=== PATIENT | male | born 1995 | race Two or more races ===

== ENCOUNTER 2021-11-18 17:41 | Emergency (ER) | payer SELFPAY ==
[~2021-11-18] VITALS: Ht 170.2 cm; Wt 90.0 kg
[2021-11-18 21:59] LABS: Basophils # (auto) 0.1 10 ^3/uL (0-0.2); Basophils % (auto) 0.5 % (0.0-2.0); Eosinophils # (auto) 0 10 ^3/uL (0-0.8); Eosinophils % (auto) 0.1 % (0.0-7.0); Hematocrit 48.3 % (41.0-53.0); Hemoglobin 15.9 g/dL (13.5-17.5); Lymphocytes % (auto) 9.1 % (10.0-50.0); Mean Corpuscular Hemoglobin 28.6 pg (28.0-32.0); Mean Corpuscular Hgb Conc. 32.9 g/dL (32.0-36.0); Mean Corpuscular Volume 86.8 fL (80.0-100.0); Monocytes # (auto) 0.2 10 ^3/uL (0-1.3); Monocytes % (auto) 2.2 % (0.0-12.0); Neutrophils % (auto) 88.1 % (37.0-80.0); Nucleated Red Blood Cells % 0.1 %; Red Blood Cells 5.57 10^6/uL (4.5-5.90); Red Cell Distribution Width 13.4 % (11.8-14.3); White Blood Cell 11.4 10^3/uL (4.4-10.8)
[2021-11-18 22:17] LABS: Albumin 4.5 g/dL (3.4-5.0); Calcium 9.4 mg/dL (8.5-10.1); Potassium 3.5 mmol/L (3.5-5.1)
[2021-11-18 22:21] LABS: BUN/Creatinine Ratio 18.3; Total Protein 8.6 g/dL (6.4-8.2)
[2021-11-19] MEDS ORDERED: ONDANSETRON ODT 4 MG TAB PO ONE (01:15)
[2021-11-19] MEDS ORDERED: OLME40TA26 PO (08:37)
[2021-11-19 08:45] VITALS: BP 138/80
[2021-11-19 09:11] LABS: Urine Bacteria NONE SEEN /hpf (None Seen); Urine Blood Negative /uL (Negative); Urine Hyaline Cast MANY /lpf (0 - 2); Urine Mucus MODERATE (None Seen); Urine Specific Gravity 1.031 (1.001-1.035); Urine WBC 9 /hpf (0 - 3)
== END 2021-11-19 08:48 | disposition home or self-care (01) ==
LOC: ER 17:45
DX: I10 Essential (primary) hypertension (principal); R07.89 Other chest pain; R11.2 Nausea with vomiting, unspecified; R51.9 Headache, unspecified
CPT/HCPCS: 36415; 70450; 71045; 80053; 81001; 83690; 83735; 84443; 84484; 85025; 93005; 99285; Q0162

== ENCOUNTER 2024-02-16 07:06 | Inpatient (IN) | payer MEDICAID ==
[~2024-02-16] VITALS: Ht 172.7 cm; Wt 88.1 kg
[~2024-02-16 07:06] MED LIST: OLME40TA78 PO
[2024-02-16] MEDS: SODIUM CHLORIDE 0.9% 1,000 ML IV ONE (07:45)
[2024-02-16] MEDS: ONDANSETRON HCL 4 MG/2 ML VIAL IV ONE ×2 (07:45→10:00)
--- NOTE | 2024-02-16 07:52 | ED.PDOC ---
GI ASSESSMENT HPI Comments 28Y M with PMHx HTN and NSTEMI presents to ED via EMS for chief complaint abd pain since this morning. Pt describes abd pain as pressure. Associated symptoms include nausea, vomiting, constipation, diarrhea, diaphoresis, and facial numbness. Pt states he was previously constipated but after receiving medication by EMS, he started to have diarrhea. Pt woke up with diaphoresis and tongue numbness. Pt states he was unable to speak this morning. No known allergies. Chief Complaint: Abdominal Pain Time Seen by MD: 07:32 Primary Care Provider: UNKNOWN Reviewed Notes: Medications, Allergies Allergies: Coded Allergies: NO KNOWN ALLERGIES (Unverified , 02/16/24) Information Source: Patient, Emergency Med Personnel Mode of Arrival: EMS Brought in by: EMS Timing: Hours Duration: Since onset Prehospital treatment: Other Quality: Other Vomitus: Watery Stool: Watery Severity: Moderate Recent: None Recent Hx of: None Pain Location: Diffuse Modifying Factors: Nothing Associated sign and symptoms: Nausea, Vomiting, Diarrhea, Constipation, Abdominal Pain, Other Past Medical History PAST MEDICAL HISTORY: HTN, [place] Surgical History: Denies all surgeries Family History Family History: Unknown Social History Smoker: Non-Smoker Alcohol: Denies ETOH Use Drugs: Denies Drug Use Lives In: Home Constitutional: reports: diaphoresis; denies: chills, fatigue, fever, malaise, sweats, weakness, others EENTM: denies: blurred vision, double vision, ear bleeding, ear discharge, ear drainage, ear pain, ear ringing, eye pain, eye redness, hearing loss, mouth pain, mouth swelling, nasal discharge, nose bleeding, nose congestion, nose pain, photophobia, tearing, throat pain, throat swelling, voice changes, others Respiratory: denies: cough, hemoptysis, orthopnea, SOB at rest, shortness of breath, SOB with excertion, stridor, wheezing, others Cardiovascular: denies: chest pain, dizzy spells, diaphoresis, Dyspnea on exertion, edema, irregular heart beat, left arm pain, lightheadedness, palpitations, PND, syncope, others Gastrointestinal: reports: abdominal pain, constipated, diarrhea, nausea, vomiting; denies: abdomen distended, blood streaked bowels, dysphagia, difficulty swallowing, hematemesis, melena, poor appetite, poor fluid intake, rectal bleeding, rectal pain, others Genitourinary: denies: burning, dysuria, flank pain, frequency, hematuria, incontinence, penile discharge, penile sore, pain, testicle pain, testicle swelling, urgency, others Neurological: reports: numbness, speech problems; denies: dizziness, fainting, headache, left sided numbness, left sided weakness, paresthesia, pre-existing deficit, right sided numbness, right sided weakness, seizure, tingling, tremors, weakness, others Musculoskeletal: denies: back pain, gout, joint pain, joint swelling, muscle pain, muscle stiffness, neck pain, others Integumetry: denies: bruises, change in color, change in hair/nails, dryness, laceration, lesions, lumps, rash, wounds, others Allergic/Immunocompromised: denies: Difficulty Healing, Frequent Infections, H osei, Itching, others Hematologic/Lymphatic: denies: anemia, blood clots, easy bleeding, easy bruising, swollen glands, others Endocrine: denies: excessive hunger, excessive sweating, excessive thirst, excessive urination, flushing, intolerance to cold, intolerance to heat, unexplained weight gain, unexplained weight loss, others Psychiatric: denies: anxiety, bipolar disorder, depression, hopeless, panic disorder, schizophrenia, sleepless, suicidal, others All Other Systems: Reviewed and Negative Physical Exam General Appearance: No Apparent Distress, Normal HEENT: Normal ENT Inspection, Pharynx Normal, TMs Normal Neck: Full Range of Motion, Non-Tender, Normal, Normal Inspection Respiratory: Chest Non-Tender, Lungs Clear, No Accessory Muscle Use, No Respiratory Distress, Normal Breath Sounds Cardiovascular: No Edema, No JVD, No Murmur, No Gallop, Normal Peripheral Pulses, Regular Rate/Rhythm Breast Exam: Deferred Gastrointestinal: Diffuse, Tenderness Genitalia: Deferred Pelvic: Deferred Rectal: Deferred Extremities: No calf tenderness, Normal capillary refill, Normal inspection, Normal range of motion, Non-tender, No pedal edema Musculoskeletal : Apperance: Normal Neurologic: Alert, transportation analyst II-XII nml as Tested, No Motor Deficits, Normal Affect, Normal Mood, No Sensory Deficits Cerebellar Function: Normal Reflexes: Normal Skin: Dry, Normal Color, Warm Lymphatic: No Adenopathy Was a procedure done? Was a procedure done?: No GI differential Dx Differential Diagnosis: Appendicitis, Cholecystitis, Diverticular disease, Gastroenteritis, Inflammatory BD, UTI, Electrolyte Imbalance X-Ray, Labs, Meds, VS Vital Signs Date Time Temp Pulse Resp B/P (MAP) Pulse Ox O2 Delivery O2 Flow Rate FiO2 02/16/24 08:25 98.1 77 18 139/91 (107) 100 98.1 02/16/24 08:25 73 18 100 Room Air* 0 21 02/16/24 07:16 97.7 64 18 146/91 (109) 100 Lab Test 02/16/24 08:53 02/16/24 07:48 Range/Units Troponin I High Sensitivity < 3 L < 3 L </=54 ng/L White Blood Count 10.5 4.4-10.8 10^3/uL Red Blood Count 5.46 4.5-5.90 10^6/uL Hemoglobin 16.7 13.5-17.5 g/dL Hematocrit 48.2 41.0-53.0 % Mean Corpuscular Volume 88.2 80.0-100.0 fL Mean Corpuscular Hemoglobin 30.6 28.0-32.0 pg Mean Corpuscular Hemoglobin Concent 34.7 32.0-36.0 g/dL Red Cell Distribution Width 13.3 11.8-14.3 % Platelet Count 287 140-450 10^3/uL Mean Platelet Volume 7.4 6.9-10.8 fL Neutrophils (%) (Auto) 84.6 H 37.0-80.0 % Lymphocytes (%) (Auto) 8.8 L 10.0-50.0 % Monocytes (%) (Auto) 3.7 0.0-12.0 % Eosinophils (%) (Auto) 2.2 0.0-7.0 % Basophils (%) (Auto) 0.7 0.0-2.0 % Neutrophils # (Auto) 8.9 H 1.6-8.6 10 ^3/uL Lymphocytes # (Auto) 0.9 0.4-5.4 10 ^3/uL Monocytes # (Auto) 0.4 0-1.3 10 ^3/uL Eosinophils # (Auto) 0.2 0-0.8 10 ^3/uL Basophils # (Auto) 0.1 0-0.2 10 ^3/uL Nucleated Red Blood Cells 0.0 % Sodium Level 140 136-145 mmol/L Potassium Level 3.8 3.5-5.1 mmol/L Chloride Level 103 98-107 mmol/L Carbon Dioxide Level 29 20-31 mmol/L Anion Gap 8 5-15 Blood Urea Nitrogen 16 9-23 mg/dL Creatinine 0.94 0.700-1.30 mg/dL Glomerular Filtration Rate Calc 114 >90 mL/min BUN/Creatinine Ratio 17.0 10.0-20.0 Serum Glucose 143 H 74-106 mg/dL Calcium Level 10.0 8.7-10.4 mg/dL Total Bilirubin 0.6 0.2-1.0 mg/dL Aspartate Amino Transferase (AST) 16 13-40 U/L Alanine Aminotransferase (ALT) 26 7-40 U/L Alkaline Phosphatase 100 46-116 U/L Total Protein 7.4 5.7-8.2 g/dL Albumin 4.7 3.2-4.8 g/dL Lipase 43 12-53 U/L Current Medications Medications (Trade) Dose Ordered Sig/Shun Route Start Time Stop Time Status Last Admin Sodium Chloride 1,000 ml @ 1,000 mls/hr Q1H ONCE IV 02/16/24 07:45 02/16/24 08:44 DC 02/16/24 07:45 Ondansetron HCl (Zofran) 4 mg ONCE ONCE IV 02/16/24 07:45 02/16/24 07:46 DC 02/16/24 07:45 [place] [id number] Ph: [phone] DIAGNOSTIC IMAGING Diagnostic Imaging Report : [id number] Signed PATIENT: KELLY LANDEROS ACCT: [id number] UNIT: [id number] : 1995 LOC: ER ROOM / BED: / AGE / SEX: 28 / M ADM STATUS: REG ER SERVICE 0737 ORDERING PHYSICIAN: SADIE PERKINS MD PROCEDURE(s): CXRP - CHEST PORTABLE REASON: abdomninal pain, near syncope ORDER NUMBER(s): [id number], ACCESSION NUMBER(s): [id number] EXAM: XR Chest, 1 View CLINICAL INDICATION: abdomninal pain, near syncope TECHNIQUE: Frontal view of the chest. COMPARISON: None FINDINGS: LUNGS AND PLEURAL SPACES: Unremarkable. No consolidation. No pneumothorax. HEART: Unremarkable. No cardiomegaly. MEDIASTINUM: Unremarkable. Normal mediastinal contour. BONES/JOINTS: Unremarkable. No acute fracture. OTHER FINDINGS: . . . IMPRESSION: No acute cardiopulmonary process. HS:Y ATED BY: JAMAR CHAVIS MD DICTATED DATE/TIME: 02/16/24899 SIGNED BY: JAMAR CHAVIS MD SIGNED DATE/TIME: 02/16/24899 CC: [place] [address] Ph: [phone] DIAGNOSTIC IMAGING Diagnostic Imaging Report : [id number] Signed PATIENT: KELLY LANDEROS ACCT: [id number] UNIT: [id number] : 1995 LOC: ER ROOM / BED: / AGE / SEX: 28 / M ADM STATUS: REG ER SERVICE 6 ORDERING PHYSICIAN: SADIE PERKINS MD PROCEDURE(s): ABPLIV - CT AB PEL WITH IV CON ONLY REASON: ABDOMINAL PAIN, NEAR SYNCOPE ORDER NUMBER(s): [id number], ACCESSION NUMBER(s): [id number] EXAM: CT Abdomen and Pelvis With Intravenous Contrast CLINICAL INDICATION: ABDOMINAL PAIN, NEAR SYNCOPE TECHNIQUE: Axial computed tomography images of the abdomen and pelvis with intravenous contrast. This CT exam was performed using one or more of the following dose reduction techniques: automated exposure control, adjustment of the mA and/or kV according to patient size, and/or use of iterative reconstruction technique. RADIATION DOSE: CTDlvol= 11.6 mGy, DLP= 598.35 mGy-cm COMPARISON: None FINDINGS: LUNG BASES: Unremarkable. No mass. No consolidation. ABDOMEN: LIVER: Fatty infiltration of the liver. GALLBLADDER AND BILE DUCTS: Unremarkable. No calcified stones. No ductal dilation. PANCREAS: Unremarkable. No mass. No ductal dilation. SPLEEN: Unremarkable. No splenomegaly. ADRENALS: Unremarkable. No mass. KIDNEYS AND URETERS: Unremarkable. No stones within either kidney. No hydronephrosis. STOMACH AND BOWEL: Unremarkable. No obstruction. No mucosal thickening. PELVIS: APPENDIX: Appendix measuring up to 6 mm containing a 2 mm calculus. No surrounding fat stranding is noted to suggest acute inflammation. BLADDER: Unremarkable. No mass. REPRODUCTIVE: Unremarkable as visualized. ABDOMEN and PELVIS: INTRAPERITONEAL SPACE: Unremarkable. No free air. No significant fluid collection. BONES/JOINTS: No acute fracture. No dislocation. SOFT TISSUES: Umbilical hernia containing fat. VASCULATURE: Unremarkable. No abdominal aortic aneurysm. LYMPH NODES: Unremarkable. No enlarged lymph nodes. OTHER FINDINGS: . . IMPRESSION: 1. Umbilical hernia containing fat. 2. Appendix measuring up to 6 mm containing a 2 mm calculus. No surrounding fat stranding is noted to suggest acute inflammation. 3. No obstructive uropathy. HS:Y ATED BY: JAMAR CHAVIS MD DICTATED DATE/TIME: 02/16/24922 SIGNED BY: JAMAR CHAVIS MD SIGNED DATE/TIME: 02/16/24922 CC: Time of 1ST Reevaluation: 08:02 Reevaluation 1ST: Unchanged Patient Education/Counseling: Diagnosis, Treatment Family Education/Counseling: No Family Present Departure 1 Departure Time of Disposition: 09:48 (Patient presented with abdominal pain that was concerning for possible appendicits, gastritis, cholecystitis, colitis, gastroenteritis, sbo, or orther possible surgical emergency. Data: 1. I ordered and reviewed the result of at least 3 labs including a CBC, BMP, and Urinalysis. 2. I independently interpreted the following tests: CT Abdoment and Pelvis is concerning for early appendicitis .Risk:This patient has a high risk of morbidity due to further diagnostic testing or treatment and may suffer from an acute abdominal process disorder. Workup reveals enlarged appendix with a stone in the appendix and dehydration and patient should be admitted for further workup. and possible expert consultation. ) Impression: Primary Impression: Appendix disease Additional Impressions: Intractable abdominal pain Projectile vomiting with nausea Disposition: ADMITTED INPATIENT Admit to: Med Surg Condition: Serious Critical Care Note Critical Care Time?: Yes Critical care comment: Intractable abdominal pain Authorized and Performed by: Sadie Perkins MD Total critical care time: Approximately 33 minutes Due to a high probability of clinically significant, life threatening deterioration, the patient required my highest level of preparedness to intervene emergently and I personally spent this critical care time directly and personally managing the patient. This critical care time included obtaining a history; examining the patient; pulse oximetry; ordering and review of studies; arranging urgent treatment with development of a management plan; evaluation of patient's response to treatment; frequent reassessment; and, discussions with other providers. This critical care time was performed to assess and manage the high probability of imminent, life-threatening deterioration that could result in multi-organ failure. It was exclusive of separately billable procedures and treating other patients and teaching time. Please see my other sections and the rest of the note for further information on patient assessment and treatment. Stability Stability form required: No I personally scribed for SADIE PERKINS MD ([facility]) on 02/16/24 at 07:52. Electronically submitted by Rosa Lamb ([employer]). I personally scribed for SADIE PERKINS MD ([email or web address]) on 02/16/24 at 09:34. Electronically submitted by Rosa Lamb ([employer]). SADIE PERKINS MD Feb 16, 2024 07:52
[2024-02-16 08:02] LABS: Basophils # (auto) 0.1 10 ^3/uL (0-0.2); Basophils % (auto) 0.7 % (0.0-2.0); Eosinophils # (auto) 0.2 10 ^3/uL (0-0.8); Eosinophils % (auto) 2.2 % (0.0-7.0); Hematocrit 48.2 % (41.0-53.0); Hemoglobin 16.7 g/dL (13.5-17.5); Lymphocytes # (auto) 0.9 10 ^3/uL (0.4-5.4); Lymphocytes % (auto) 8.8 % (10.0-50.0); Mean Corpuscular Hemoglobin 30.6 pg (28.0-32.0); Mean Corpuscular Hgb Conc. 34.7 g/dL (32.0-36.0); Mean Corpuscular Volume 88.2 fL (80.0-100.0); Monocytes # (auto) 0.4 10 ^3/uL (0-1.3); Monocytes % (auto) 3.7 % (0.0-12.0); Neutrophils # (auto) 8.9 10 ^3/uL (1.6-8.6); Neutrophils % (auto) 84.6 % (37.0-80.0); Platelet Count (auto) 287 10^3/uL (140-450); Red Blood Cells 5.46 10^6/uL (4.5-5.90); Red Cell Distribution Width 13.3 % (11.8-14.3); White Blood Cell 10.5 10^3/uL (4.4-10.8)
[2024-02-16 08:20] LABS: Alanine Aminotransferase 26 U/L (7-40); Albumin 4.7 g/dL (3.2-4.8); Alkaline Phosphatase 100 U/L (46-116); Anion Gap 8 (5-15); Aspartate Aminotransferase 16 U/L (13-40); Bilirubin, Total 0.6 mg/dL (0.2-1.0); Blood Urea Nitrogen 16 mg/dL (9-23); Carbon Dioxide 29 mmol/L (20-31); Chloride 103 mmol/L (98-107); Potassium 3.8 mmol/L (3.5-5.1); Sodium 140 mmol/L (136-145); Total Protein 7.4 g/dL (5.7-8.2)
[2024-02-16 08:21] LABS: Glucose 143 mg/dL (74-106)
[2024-02-16 08:25] VITALS: PULSE 73; RESP 18; O2SAT 100
[2024-02-16] MEDS: IOHEXOL 300 MG/ML 100ML BOTTLE IJ ONE (08:38)
--- NOTE | 2024-02-16 09:03 | DVH ---
EXAM: XR Chest, 1 View CLINICAL INDICATION: abdomninal pain, near syncope TECHNIQUE: Frontal view of the chest. COMPARISON: None FINDINGS: LUNGS AND PLEURAL SPACES: Unremarkable. No consolidation. No pneumothorax. HEART: Unremarkable. No cardiomegaly. MEDIASTINUM: Unremarkable. Normal mediastinal contour. BONES/JOINTS: Unremarkable. No acute fracture. OTHER FINDINGS: . . . IMPRESSION: No acute cardiopulmonary process. HS:Y
[2024-02-16 09:12] LABS: Lipase 43 U/L (12-53)
--- NOTE | 2024-02-16 09:26 | DVH ---
EXAM: CT Abdomen and Pelvis With Intravenous Contrast CLINICAL INDICATION: ABDOMINAL PAIN, NEAR SYNCOPE TECHNIQUE: Axial computed tomography images of the abdomen and pelvis with intravenous contrast. is CT exam was performed using one or more of the following dose reduction techniques: automated exp osure control, adjustment of the mA and/or kV according to patient size, and/or use of iterative natasha nstruction technique. RADIATION DOSE: CTDlvol= 11.6 mGy, DLP= 598.35 mGy-cm COMPARISON: None FINDINGS: LUNG BASES: Unremarkable. No mass. No consolidation. ABDOMEN: LIVER: Fatty infiltration of the liver. GALLBLADDER AND BILE DUCTS: Unremarkable. No calcified stones. No ductal dilation. PANCREAS: Unremarkable. No mass. No ductal dilation. SPLEEN: Unremarkable. No splenomegaly. ADRENALS: Unremarkable. No mass. KIDNEYS AND URETERS: Unremarkable. No stones within either kidney. No hydronephrosis. STOMACH AND BOWEL: Unremarkable. No obstruction. No mucosal thickening. PELVIS: APPENDIX: Appendix measuring up to 6 mm containing a 2 mm calculus. No surrounding fat stranding is noted to suggest acute inflammation. BLADDER: Unremarkable. No mass. REPRODUCTIVE: Unremarkable as visualized. ABDOMEN and PELVIS: INTRAPERITONEAL SPACE: Unremarkable. No free air. No significant fluid collection. BONES/JOINTS: No acute fracture. No dislocation. SOFT TISSUES: Umbilical hernia containing fat. VASCULATURE: Unremarkable. No abdominal aortic aneurysm. LYMPH NODES: Unremarkable. No enlarged lymph nodes. OTHER FINDINGS: . . IMPRESSION: 1. Umbilical hernia containing fat. 2. Appendix measuring up to 6 mm containing a 2 mm calculus. No surrounding fat stranding is noted t o suggest acute inflammation. 3. No obstructive uropathy. HS:Y
[2024-02-16] MEDS: FAMOTIDINE (10MG/ML) 2ML VL IV ONE (10:00)
[2024-02-16] MEDS: ceFAZolin 2 GM/D5W50ml 50 ML IV ONE (10:00)
[2024-02-16] MEDS: metroNIDAZOLE 500MG/100ML 100 ML IV ONE (10:00)
[2024-02-16] MEDS: MORPHINE SULFATE 4 MG/ML SYR/VIAL IV ONE (10:00)
[2024-02-16 11:05] VITALS: BP 135/82; PULSE 89; RESP 16; TEMP 98.7; O2SAT 99
[2024-02-16] MEDS ORDERED: ACETAMINOPHEN 325 MG TAB PO PRN (11:15)
[2024-02-16] MEDS ORDERED: MORPHINE SULFATE INJ 2 MG/ml SYRG IV PRN (11:15)
[2024-02-16] MEDS ORDERED: DOCUSATE SOD 100 MG CAP PO PRN (11:15)
[2024-02-16] MEDS ORDERED: TEMAZEPAM 15 MG CAP PO PRN (11:15)
[2024-02-16] MEDS ORDERED: LORazepam 0.5 MG TAB PO PRN (11:15)
[2024-02-16] MEDS ORDERED: DEXTROSE (50%) 50ML SYRG IV PRN (11:15)
[2024-02-16] MEDS: SODIUM CHLORIDE 0.9% 1,000 ML IV SCH (11:15)
[2024-02-16] MEDS ORDERED: ONDANSETRON HCL 4 MG/2 ML VIAL IV PRN (11:15)
[2024-02-16] MEDS ORDERED: MAALOX PLUS or MAALOX 30 ML PO PRN (11:15)
--- NOTE | 2024-02-16 11:16 | DVHHP2 ---
History of Present Illness Reason for Visit: Appendix type History of Present Illness 28-year-old patient with a past medical history of RI and hypertension morbidly obese came into the ED with complaints of abdominal pain patient states that he has had associated nausea vomiting constipation diarrhea that has been happening on and off for few days but today was the worst when patient woke up having diaphoresis and sweating stating that he was having a lot of severe pain as of now patient was recommended in the ED to be evaluated for acute abdominal pain and recommended for further evaluation and management Cardiovascular: HTN, RI Review of Systems Constitutional: Yes: Weakness; No: Fever, Chills, Sweats, Malaise, Other Eyes: No: Pain, Vision change, Conjunctivae inflammation, Eyelid inflammation, Other, Redness ENT: No: Ear pain, Ear discharge, Nose pain, Nose discharge, Nose congestion, Mouth pain, Mouth swelling, Throat pain, Throat swelling, Other Respiratory: No: Cough, Dry, Shortness of breath, SOB with excertion, Wheezing, Hemoptysis, Pleuritic Pain, Sputum, Wheezing, Other Cardiovascular: No: Chest Pain, Palpitations, Orthopnea, Paroxysmal Noc. Dyspnea, Edema, Lt Headedness, Other Gastrointestinal: Nausea, Vomiting, Abdominal Pain Genitourinary: No Dysuria, No Frequency, No Incontinence, No Hematuria, No Retention, No Other Musculoskeletal: No: other, neck pain, shoulder pain, arm pain, back pain, hand pain, leg pain, foot pain Neurological: No: Weakness, Numbness, Incoordination, Change in speech, Confusion, Seizures, Other Allergies: Coded Allergies: NO KNOWN ALLERGIES (Unverified , 02/16/24) Exam Vital Signs Vital Signs Date Time Temp Pulse Resp B/P (MAP) Pulse Ox O2 Delivery O2 Flow Rate FiO2 02/16/24 08:25 98.1 77 18 139/91 (107) 100 98.1 02/16/24 08:25 Room Air* 0 21 General Appearance: Alert, Oriented X3 HEENT: Atraumatic, PERRLA Respiratory: Clear to auscultation, Normal air movement Cardiovascular: Regular rate, Normal S1, Normal S2 Abdominal: Normal bowel sounds, Soft, No tenderness Extremities: No clubbing, No cyanosis Skin: No rashes, No breakdown Neuro: Normal gait, Normal speech Psych/Mental Status: Mood NL Labs/Xrays Labs Test 02/16/24 08:53 02/16/24 07:48 Range/Units Troponin I High Sensitivity < 3 L </=54 ng/L White Blood Count 10.5 4.4-10.8 10^3/uL Red Blood Count 5.46 4.5-5.90 10^6/uL Hemoglobin 16.7 13.5-17.5 g/dL Hematocrit 48.2 41.0-53.0 % Mean Corpuscular Volume 88.2 80.0-100.0 fL Mean Corpuscular Hemoglobin 30.6 28.0-32.0 pg Mean Corpuscular Hemoglobin Concent 34.7 32.0-36.0 g/dL Red Cell Distribution Width 13.3 11.8-14.3 % Platelet Count 287 140-450 10^3/uL Mean Platelet Volume 7.4 6.9-10.8 fL Neutrophils (%) (Auto) 84.6 H 37.0-80.0 % Lymphocytes (%) (Auto) 8.8 L 10.0-50.0 % Monocytes (%) (Auto) 3.7 0.0-12.0 % Eosinophils (%) (Auto) 2.2 0.0-7.0 % Basophils (%) (Auto) 0.7 0.0-2.0 % Neutrophils # (Auto) 8.9 H 1.6-8.6 10 ^3/uL Lymphocytes # (Auto) 0.9 0.4-5.4 10 ^3/uL Monocytes # (Auto) 0.4 0-1.3 10 ^3/uL Eosinophils # (Auto) 0.2 0-0.8 10 ^3/uL Basophils # (Auto) 0.1 0-0.2 10 ^3/uL Nucleated Red Blood Cells 0.0 % Sodium Level 140 136-145 mmol/L Potassium Level 3.8 3.5-5.1 mmol/L Chloride Level 103 98-107 mmol/L Carbon Dioxide Level 29 20-31 mmol/L Anion Gap 8 5-15 Blood Urea Nitrogen 16 9-23 mg/dL Creatinine 0.94 0.700-1.30 mg/dL Glomerular Filtration Rate Calc 114 >90 mL/min BUN/Creatinine Ratio 17.0 10.0-20.0 Serum Glucose 143 H 74-106 mg/dL Calcium Level 10.0 8.7-10.4 mg/dL Total Bilirubin 0.6 0.2-1.0 mg/dL Aspartate Amino Transferase (AST) 16 13-40 U/L Alanine Aminotransferase (ALT) 26 7-40 U/L Alkaline Phosphatase 100 46-116 U/L Total Protein 7.4 5.7-8.2 g/dL Albumin 4.7 3.2-4.8 g/dL Lipase 43 12-53 U/L Assessment/Plan Assessment/Plan Admit to [facility] Patient with inflammation and pain noted to have Umbilical hernia containing fat Appendix dilation with stones and pain Intractable abdominal pain Intractable nausea and vomiting IV hydration NPO Surgical consult IV antibiotics History of hypertension and RI We will continue with patient's home medication Morbid obese patient No stated history of diabetes patient was hyperglycemia we will have insulin sliding scale inpatient Plan discussed with: Patient My Orders Orders - JOSELO BROOKS MD Procedure Category Date Status Time * Surgical Consult CONS 02/16/24 Transmitted Metronidazole PHA 02/16/24 Logged 500mg/100ml (Flagyl 12:00 Glucose Blood PHA 02/16/24 Logged (Accu-Chek Comfort 12:00 Insulin R (Human) PHA 02/16/24 Logged (Insulin R) 12:00 Dextrose 50% Syringe PHA 02/16/24 Logged 11:15 Admit ADMIT 02/16/24 Transmitted 11:03 Code Status CODE 02/16/24 Transmitted 11:03 Vital Signs [facility] 02/16/24 In Process 11:03 Review Orders With [facility] 02/16/24 In Process Adm. 11:03 Npo (Nothing By DIET 02/16/24 Transmitted Mouth) Diet Lunch Sodium Chloride 0.9% PHA 02/16/24 Logged 11:15 Lorazepam Tablet [facility] 02/16/24 Logged (Ativan Tablet) 11:15 Alum & Mag PHA 02/16/24 Logged Hydrox-Simethicone 11:15 Docusate Sodium PHA 02/16/24 Logged Capsule (Colace 11:15 Acetaminophen Tablet PHA 02/16/24 Logged (Tylenol Tablet) 11:15 Temazepam (Restoril) PHA 02/16/24 Logged 11:15 Notify Of Changes [facility] 02/16/24 In Process From Base 11:03 Advance Directive [facility] 02/16/24 In Process 11:03 Basic Metabolic Panel LAB 02/17/24 Verified 04:00 Complete Blood Count LAB 02/17/24 Verified 04:00 Patient Condition ORDERS 02/16/24 Transmitted 11:03 Allergies JITENDRA 02/16/24 In Process 11:03 Hydrocodone-Acet PHA 02/16/24 Logged 5/325mg Tab ([place] 11:15 Ondansetron Hcl PHA 02/16/24 Logged (Zofran) 11:15 Morphine Sulfate PHA 02/16/24 Logged Injection 11:15 Notify Md Of Changes [facility] 02/16/24 In Process From Base 11:03 Director Of Counseling For [facility] 02/16/24 In Process 24 Hours 11:03 Oxygen By Nasal RT 02/16/24 Transmitted Cannula 11:03 Problem List: (1) Appendix disease (2) Intractable abdominal pain (3) Projectile vomiting with nausea Date of Service: Feb 16, 2024 Billing Provider: JOSELO BROOKS MD Common Visit Codes: [id number] INP/OBS CARE (HIGH) JOSELO BROOKS MD Feb 16, 2024 11:16
[2024-02-16] MEDS: InsuLIN REG 1unit/0.01ml Soln (100units/ml) SC SCH (12:00)
[2024-02-16] MEDS: metroNIDAZOLE 500MG/100ML 100 ML IV SCH (12:00)
[2024-02-16] MEDS: ACCU-CHEK COMFORT CURVE STRIP VI SCH (12:26)
[2024-02-16 15:05] VITALS: BP 122/76; PULSE 69; RESP 16; TEMP 98.4; O2SAT 98
--- NOTE | 2024-02-16 15:24 | DVHINCON2 ---
Date of service: Feb 16, 2024 History of Present Illness 28-year-old male complaining of one day history of severe bilateral lower quadrant abdominal pain more on the left side associated with nausea and vomiting and diarrhea. Patient denies any fevers or chills. Past Medical History Coronary artery disease status post GA. Hypertension. Past Surgical History Left knee surgery. Denies any abdominal surgeries Family History Noncontributory Social History Denies alcohol, tobacco, IV drug use Allergies: Coded Allergies: NO KNOWN ALLERGIES (Unverified , 02/16/24) Current Medications Current Medications Medications (Trade) Dose Ordered Sig/Shun Route PRN Reason Start Time Stop Time Status Last Admin Metronidazole 100 ml @ 100 mls/hr Q6HR IV 02/16/24 12:00 Diagnostic Test (Pha) (Accu-Chek Comfort Curve T) 1 strip IQ4HR 02/16/24 12:00 02/16/24 12:26 Insulin Human Regular (InsuLIN R) IQ4HR SC 02/16/24 12:00 Dextrose 50 ml UD PRN IV Blood Sugar LESS THAN 60 02/16/24 11:15 Sodium Chloride 1,000 ml @ 60 mls/hr [id number] IV 02/16/24 11:15 02/16/24 11:15 Lorazepam (Ativan Tablet) 0.5 mg Q6HP PRN PO ANXIETY 02/16/24 11:15 Al Hydrox/Mg Hydrox/Simethicone (Maalox Plus) 30 ml Q6HP PRN PO FOR STOMACH DISTRESS 02/16/24 11:15 Docusate Sodium (Colace Capsule) 100 mg BIDPRN PRN PO FOR CONSTIPATION 02/16/24 11:15 Acetaminophen (Tylenol Tablet) 650 mg Q6HP PRN PO PAIN SCALE 1-3 OR TEMP>100.4 02/16/24 11:15 Temazepam (Restoril) 15 mg QHSP PRN PO FOR INSOMNIA 02/16/24 11:15 Acetaminophen/ Hydrocodone Bitart ([place] 5/325MG Tab) 1 tab Q4HP PRN PO MODERATE PAIN (4-6 PAIN SCALE) 02/16/24 11:15 Ondansetron HCl (Zofran) 4 mg Q4HP PRN IV NAUSEA / VOMITING 02/16/24 11:15 Morphine Sulfate 2 mg Q4HPRN PRN IV SEVERE PAIN (7-10 PAIN SCALE) 02/16/24 11:15 Vital Signs Vital Signs Date Time Temp Pulse Resp B/P (MAP) Pulse Ox O2 Delivery O2 Flow Rate FiO2 02/16/24 15:05 98.4 69 16 122/76 (91) 98 98.4 02/16/24 08:25 Room Air* 0 21 Physical Exam GEN: Age-appropriate male in no acute distress. Alert. HEENT: Normocephalic atraumatic. Moist mucous membranes. Anicteric sclerae. CV: RRR Respiratory: CTAB ABD: Very minimal bilateral lower quadrant tenderness to palpation especially in the left lower quadrant more so than right. No guarding or rebound. Nondistended. No tenderness in the umbilical region. Appendix measuring 6 mm containing 2 mm calculus. No surrounding fat stranding to suggest acute inflammation. Small umbilical hernia containing fat. Labs/Diagnostic Data Labs Test 02/16/24 12:17 02/16/24 08:53 02/16/24 07:48 Range/Units POC Glucose 73 70-106 mg/dl Troponin I High Sensitivity < 3 L </=54 ng/L White Blood Count 10.5 4.4-10.8 10^3/uL Red Blood Count 5.46 4.5-5.90 10^6/uL Hemoglobin 16.7 13.5-17.5 g/dL Hematocrit 48.2 41.0-53.0 % Mean Corpuscular Volume 88.2 80.0-100.0 fL Mean Corpuscular Hemoglobin 30.6 28.0-32.0 pg Mean Corpuscular Hemoglobin Concent 34.7 32.0-36.0 g/dL Red Cell Distribution Width 13.3 11.8-14.3 % Platelet Count 287 140-450 10^3/uL Mean Platelet Volume 7.4 6.9-10.8 fL Neutrophils (%) (Auto) 84.6 H 37.0-80.0 % Lymphocytes (%) (Auto) 8.8 L 10.0-50.0 % Monocytes (%) (Auto) 3.7 0.0-12.0 % Eosinophils (%) (Auto) 2.2 0.0-7.0 % Basophils (%) (Auto) 0.7 0.0-2.0 % Neutrophils # (Auto) 8.9 H 1.6-8.6 10 ^3/uL Lymphocytes # (Auto) 0.9 0.4-5.4 10 ^3/uL Monocytes # (Auto) 0.4 0-1.3 10 ^3/uL Eosinophils # (Auto) 0.2 0-0.8 10 ^3/uL Basophils # (Auto) 0.1 0-0.2 10 ^3/uL Nucleated Red Blood Cells 0.0 % Sodium Level 140 136-145 mmol/L Potassium Level 3.8 3.5-5.1 mmol/L Chloride Level 103 98-107 mmol/L Carbon Dioxide Level 29 20-31 mmol/L Anion Gap 8 5-15 Blood Urea Nitrogen 16 9-23 mg/dL Creatinine 0.94 0.700-1.30 mg/dL Glomerular Filtration Rate Calc 114 >90 mL/min BUN/Creatinine Ratio 17.0 10.0-20.0 Serum Glucose 143 H 74-106 mg/dL Calcium Level 10.0 8.7-10.4 mg/dL Total Bilirubin 0.6 0.2-1.0 mg/dL Aspartate Amino Transferase (AST) 16 13-40 U/L Alanine Aminotransferase (ALT) 26 7-40 U/L Alkaline Phosphatase 100 46-116 U/L Total Protein 7.4 5.7-8.2 g/dL Albumin 4.7 3.2-4.8 g/dL Lipase 43 12-53 U/L Assessment 1. Abdominal pain of unclear etiology however unlikely to be acute appendicitis. Possible gastroenteritis. Plan/Recommendation 1. Continue with IV antibiotics. 2. Clear liquid diet. If the patient tolerates clear liquid diet without further symptoms, possible discharge home tomorrow. Plan discussed with: Patient DEL DUPONT MD Feb 16, 2024 15:24
[2024-02-16 18:31] VITALS: BP 133/85; PULSE 85; RESP 17; O2SAT 98
[2024-02-16 21:04] LABS: Urine Bacteria None Seen /hpf (None Seen)
[2024-02-16 21:14] LABS: Urine Blood Negative /uL (Negative); Urine Clarity Clear (Clear); Urine Color Yellow (Yellow); Urine Mucus FEW (None Seen); Urine Protein, UAD TRACE (Negative); Urine Specific Gravity 1.037 (1.001-1.035); Urine Urobilinogen Normal (Negative); Urine WBC 3 /hpf (0 - 3); Urine pH 5.5 (5.0-9.0)
[2024-02-17] VITALS (9 sets, daily range): BP systolic 130–160; BP diastolic 88–103; PULSE 63–74; RESP 14–20; TEMP 97.8–98.1; O2SAT 97–100
--- NOTE | 2024-02-17 06:11 | ECG ---
[facility] Test Date: 2024-02-16 Test Time: 17:42:19 Pat Name: KELLY NASH Department: HOLDING Room: 0223 Gender: M Audit Control Clerk: MARC : 1995 Requested By: SADIE IRCE Order Number: [id number] Reading MD: Christopher Vaughn Measurements Intervals [place] Rate: 69 P: 18 NM: 142 QRS: -25 QRSD: 97 T: -1 QT: 392 QTc: 420 Interpretive Statements Sinus rhythm Borderline left axis deviation Borderline T abnormalities, inferior leads Electronically Signed On 02-20-2024 16:10:25 PST by Christopher Vaughn Please click the below link to view image of tracing.
[2024-02-17] MEDS: HYDROcodone-ACET 5/325MG TAB PO PRN (06:36)
[2024-02-17 07:39] LABS: Basophils # (auto) 0 10 ^3/uL (0-0.2); Basophils % (auto) 0.6 % (0.0-2.0); Eosinophils # (auto) 0.2 10 ^3/uL (0-0.8); Eosinophils % (auto) 2.1 % (0.0-7.0); Hematocrit 43.7 % (41.0-53.0); Lymphocytes # (auto) 1.4 10 ^3/uL (0.4-5.4); Lymphocytes % (auto) 19.2 % (10.0-50.0); Mean Corpuscular Hemoglobin 30.3 pg (28.0-32.0); Mean Corpuscular Hgb Conc. 34.3 g/dL (32.0-36.0); Mean Corpuscular Volume 88.4 fL (80.0-100.0); Monocytes # (auto) 0.5 10 ^3/uL (0-1.3); Monocytes % (auto) 6.9 % (0.0-12.0); Neutrophils # (auto) 5.3 10 ^3/uL (1.6-8.6); Neutrophils % (auto) 71.2 % (37.0-80.0); Nucleated Red Blood Cells % 0.1 %; Platelet Count (auto) 253 10^3/uL (140-450); Red Blood Cells 4.94 10^6/uL (4.5-5.90); Red Cell Distribution Width 13.9 % (11.8-14.3); White Blood Cell 7.4 10^3/uL (4.4-10.8)
[2024-02-17 07:49] LABS: Chloride 104 mmol/L (98-107); Potassium 3.9 mmol/L (3.5-5.1); Sodium 139 mmol/L (136-145)
[2024-02-17 07:50] LABS: Anion Gap 6 (5-15); Calcium 9.4 mg/dL (8.7-10.4); Carbon Dioxide 29 mmol/L (20-31)
[2024-02-17 07:55] LABS: BUN/Creatinine Ratio 10.6 (10.0-20.0); Glucose 90 mg/dL (74-106)
[2024-02-17 07:59] LABS: Blood Urea Nitrogen 9 mg/dL (9-23)
--- NOTE | 2024-02-17 08:49 | DVHPN2 ---
Progress Note - Dictate Date Seen: Feb 17, 2024 Medical Necessity Reason Pt with a Central, PICC or Fol: No Subjective E: no major events o/n. still c/o bilateral lower quadrant abd pain. now reports blood in stool. vital signs Vital Sign Date Time Temp Pulse Resp B/P (MAP) Pulse Ox O2 Delivery O2 Flow Rate FiO2 02/17/24 07:35 14 Room Air* 0 21 02/17/24 05:49 98.1 74 142/99 (113) 97 98.1 Total Intake and Output 02/16/24 02/16/24 02/17/24 15:00 23:00 07:00 Intake Total 1150 ml 100 ml 200 ml Balance 1150 ml 100 ml 200 ml medications Current Medications Medications Dose Ordered Sig/Shun Route Start Time Stop Time Status Last Admin Dose Admin Metronidazole 100 ml @ 100 mls/hr Q6HR IV 02/16/24 12:00 02/17/24 05:36 100 MLS/HR Diagnostic Test (Pha) 1 strip IQ4HR 02/16/24 12:00 02/16/24 20:12 1 STRIP Insulin Human Regular IQ4HR SC 02/16/24 12:00 Dextrose 50 ml UD PRN IV 02/16/24 11:15 Sodium Chloride 1,000 ml @ 60 mls/hr [id number] IV 02/16/24 11:15 02/17/24 05:01 60 MLS/HR Lorazepam 0.5 mg Q6HP PRN PO 02/16/24 11:15 Al Hydrox/Mg Hydrox/Simethicone 30 ml Q6HP PRN PO 02/16/24 11:15 Docusate Sodium 100 mg BIDPRN PRN PO 02/16/24 11:15 Acetaminophen 650 mg Q6HP PRN PO 02/16/24 11:15 Temazepam 15 mg QHSP PRN PO 02/16/24 11:15 Acetaminophen/ Hydrocodone Bitart 1 tab Q4HP PRN PO 02/16/24 11:15 02/17/24 06:36 1 TAB Ondansetron HCl 4 mg Q4HP PRN IV 02/16/24 11:15 Morphine Sulfate 2 mg Q4HPRN PRN IV 02/16/24 11:15 objective GEN: NAD ABD: soft. bilateral lower quad TTP. ND laboratory and microbiology Laboratory Tests 02/17/24 07:05 Test 02/17/24 07:05 Range/Units Serum Glucose 90 74-106 mg/dL Assessment/Plan A: 1. Abdominal pain of unclear etiology however unlikely to be acute appendicitis. 2. GI consult Plan discussed with: Patient DEL DUPONT MD Feb 17, 2024 08:49
[2024-02-17] MEDS: CIPROFLOXACIN HCL 500 MG TAB PO SCH (10:00)
[2024-02-17] MEDS ORDERED: LISI10TA34 PO (13:25)
[2024-02-17] MEDS ORDERED: AMLO1TAB22 PO (13:25)
[2024-02-17] MEDS ORDERED: GEMF-66 PO (13:26)
--- NOTE | 2024-02-17 15:55 | DVHPN2 ---
Subjective Feels better. His abdominal pain was in the lower abdominal area mostly in the middle. No right quadrant pain. He had three episodes of blood in stool. Reviewed: Care Plan, H&P, Labs, Medications, Previous Orders, Radiology, Other (Skull Chopper) Changes from previous H/P or p: No Changes Objective Vitals Vital Signs Date Time Temp Pulse Resp B/P (MAP) Pulse Ox O2 Delivery O2 Flow Rate FiO2 02/17/24 14:00 65 15 143/91 (108) 99 02/17/24 10:34 98.4 98.4 02/17/24 07:35 Room Air* 0 21 Intake/Output Intake and Output 02/17/24 07:00 Intake Total 1450 ml Balance 1450 ml Intake IV Total 1450 ml General Appearance: Alert, Oriented X3, Cooperative, No acute distress HEENT: Atraumatic, PERRLA Lungs: Clear to auscultation Cardiovascular: Regular rate Abdomen: Normal bowel sounds, Soft, Other (Mild tenderness in the lower mid abdominal area) Extremities: Other (No edema) Medications Current Medications Medications Dose Ordered Sig/Shun Route Start Time Stop Time Status Last Admin Dose Admin Metronidazole 100 ml @ 100 mls/hr Q6HR IV 02/16/24 12:00 02/17/24 11:37 100 MLS/HR Diagnostic Test (Pha) 1 strip IQ4HR 02/16/24 12:00 02/17/24 11:32 1 STRIP Insulin Human Regular IQ4HR SC 02/16/24 12:00 Dextrose 50 ml UD PRN IV 02/16/24 11:15 Sodium Chloride 1,000 ml @ 60 mls/hr [id number] IV 02/16/24 11:15 02/17/24 05:01 60 MLS/HR Lorazepam 0.5 mg Q6HP PRN PO 02/16/24 11:15 Al Hydrox/Mg Hydrox/Simethicone 30 ml Q6HP PRN PO 02/16/24 11:15 Docusate Sodium 100 mg BIDPRN PRN PO 02/16/24 11:15 Acetaminophen 650 mg Q6HP PRN PO 02/16/24 11:15 Temazepam 15 mg QHSP PRN PO 02/16/24 11:15 Acetaminophen/ Hydrocodone Bitart 1 tab Q4HP PRN PO 02/16/24 11:15 02/17/24 06:36 1 TAB Ondansetron HCl 4 mg Q4HP PRN IV 02/16/24 11:15 Morphine Sulfate 2 mg Q4HPRN PRN IV 02/16/24 11:15 Ciprofloxacin 500 mg Q12HR PO 02/17/24 10:00 02/17/24 10:00 500 MG Laboratory Results Laboratory Tests 02/17/24 07:05 Chemistry Test 02/17/24 07:05 Calcium Level 9.4 mg/dL (8.7-10.4) HgA1c, TSH Test 02/17/24 13:15 Hemoglobin A1c 5.3 % A1C (<5.7) Urinalysis Test 02/16/24 16:20 Urine Color Yellow (Yellow) Urine Clarity Clear (Clear) Urine pH 5.5 (5.0-9.0) Urine Specific [place] 1.037 (1.001-1.035) Urine Protein Trace (Negative) H Urine Ketones Negative (Negative) Urine Blood Negative /uL (Negative) Urine Nitrite Negative (Negative) Urine Bilirubin Negative (Negative) Urine Urobilinogen Normal mg/dL (Negative) Urine Leukocyte Esterase Negative /uL (Negative) Urine RBC 1 /hpf (0 - 3) Urine WBC 3 /hpf (0 - 3) Urine Squamous Epithelial Cells Few /hpf (<5) Urine Bacteria None seen /hpf (None Seen) Urine Mucus Few (None Seen) Urine Glucose Normal mg/dL (Normal) Assessment/Plan Assessment/Plan Lower abdominal pain of unclear etiology Lower GI bleed The umbilical hernia/fat containing Appendix stone Hypertension Obesity Fatty liver Hyperglycemia/A1c 5.3 Plan: GI consultation. H&H. Further plan per orders Plan discussed with: Patient My Orders Orders - ARTURO HUNT MD Procedure Category Date Status Time * Gi Dvh Die Mechanic CONS 02/17/24 Transmitted 13:15 Date of Service: Feb 17, 2024 Billing Provider: ARTURO HUNT MD Common Visit Codes: [id number] INP/OBS CARE(HIGH) ARTURO HUNT MD Feb 17, 2024 15:55
[2024-02-17] MEDS: SODIUM CHLORIDE 0.9% 1,000 ML IV SCH (16:00)
[2024-02-17] MEDS: cefTRIAXone 1GM/50ML D5W 50 ML IV ONE (17:24)
[2024-02-17 19:08] LABS: Hematocrit 43.5 % (41.0-53.0); Hemoglobin 14.9 g/dL (13.5-17.5)
[2024-02-17 19:43] LABS: Erythrocyte Sedimentation Rate 4 mm/hr (0-20)
[2024-02-18] VITALS (7 sets, daily range): BP systolic 140–157; BP diastolic 80–100; PULSE 61–80; RESP 17–18; TEMP 97.7–98.1; O2SAT 99–100
[2024-02-18 00:43] LABS: Hematocrit 41.5 % (41.0-53.0); Hemoglobin 14.1 g/dL (13.5-17.5)
[2024-02-18 06:58] LABS: Basophils # (auto) 0 10 ^3/uL (0-0.2); Basophils % (auto) 0.5 % (0.0-2.0); Eosinophils # (auto) 0.3 10 ^3/uL (0-0.8); Eosinophils % (auto) 4.2 % (0.0-7.0); Hematocrit 44.7 % (41.0-53.0); Hemoglobin 15.6 g/dL (13.5-17.5); Lymphocytes # (auto) 1.3 10 ^3/uL (0.4-5.4); Lymphocytes % (auto) 19.6 % (10.0-50.0); Mean Corpuscular Hemoglobin 30.7 pg (28.0-32.0); Mean Corpuscular Hgb Conc. 34.9 g/dL (32.0-36.0); Mean Corpuscular Volume 88.1 fL (80.0-100.0); Monocytes # (auto) 0.5 10 ^3/uL (0-1.3); Monocytes % (auto) 6.9 % (0.0-12.0); Neutrophils # (auto) 4.7 10 ^3/uL (1.6-8.6); Neutrophils % (auto) 68.8 % (37.0-80.0); Nucleated Red Blood Cells % 0.3 %; Platelet Count (auto) 249 10^3/uL (140-450); Red Blood Cells 5.08 10^6/uL (4.5-5.90); Red Cell Distribution Width 13.7 % (11.8-14.3); White Blood Cell 6.9 10^3/uL (4.4-10.8)
[2024-02-18 07:13] LABS: Alanine Aminotransferase 17 U/L (7-40); Albumin 4.3 g/dL (3.2-4.8); Alkaline Phosphatase 75 U/L (46-116); Anion Gap 7 (5-15); Aspartate Aminotransferase 16 U/L (13-40); BUN/Creatinine Ratio 6.8 (10.0-20.0); Bilirubin, Total 0.7 mg/dL (0.2-1.0); Calcium 9.8 mg/dL (8.7-10.4); Carbon Dioxide 30 mmol/L (20-31); Chloride 103 mmol/L (98-107); Glucose 86 mg/dL (74-106); Potassium 3.7 mmol/L (3.5-5.1); Sodium 140 mmol/L (136-145)
[2024-02-18 07:24] LABS: Blood Urea Nitrogen 6 mg/dL (9-23)
[2024-02-18] MEDS: PANTOPRAZOLE 40 MG TAB PO SCH (09:37)
[2024-02-18] MEDS: cefTRIAXone 1GM/50ML D5W 50 ML IV SCH (09:37)
--- NOTE | 2024-02-18 11:50 | DVHPN2 ---
Subjective Patient was states that his abdominal pain has some improvement. Reports that his stool had a small amount of blood. Reviewed: Care Plan, H&P, Labs, Medications, Previous Orders, Radiology, Other (Ben Day Artist) Changes from previous H/P or p: No Changes General: Per HPI Objective Vitals Vital Signs Date Time Temp Pulse Resp B/P (MAP) Pulse Ox O2 Delivery O2 Flow Rate FiO2 02/18/24 09:00 97.7 80 18 152/80 (104) 100 97.7 02/17/24 20:00 Room Air* 0 21 Intake/Output Intake and Output 02/18/24 07:00 Intake Total 550 ml Balance 550 ml Intake Oral 100 ml IV Total 450 ml General Appearance: Alert, Oriented X3, Cooperative, No acute distress HEENT: Atraumatic, PERRLA Lungs: Clear to auscultation Cardiovascular: Regular rate Abdomen: Normal bowel sounds, Soft, Other (Mild tenderness in the lower mid abdominal area) Extremities: Other (No edema) Psych/Mental Status: Mental status NL, Mood NL Medications Current Medications Medications Dose Ordered Sig/Shun Route Start Time Stop Time Status Last Admin Dose Admin Metronidazole 100 ml @ 100 mls/hr Q6HR IV 02/16/24 12:00 02/18/24 04:42 100 MLS/HR Diagnostic Test (Pha) 1 strip IQ4HR 02/16/24 12:00 02/18/24 08:05 1 STRIP Insulin Human Regular IQ4HR SC 02/16/24 12:00 Dextrose 50 ml UD PRN IV 02/16/24 11:15 Lorazepam 0.5 mg Q6HP PRN PO 02/16/24 11:15 Al Hydrox/Mg Hydrox/Simethicone 30 ml Q6HP PRN PO 02/16/24 11:15 Docusate Sodium 100 mg BIDPRN PRN PO 02/16/24 11:15 Acetaminophen 650 mg Q6HP PRN PO 02/16/24 11:15 Temazepam 15 mg QHSP PRN PO 02/16/24 11:15 Acetaminophen/ Hydrocodone Bitart 1 tab Q4HP PRN PO 02/16/24 11:15 02/18/24 09:38 1 TAB Ondansetron HCl 4 mg Q4HP PRN IV 02/16/24 11:15 Morphine Sulfate 2 mg Q4HPRN PRN IV 02/16/24 11:15 Sodium Chloride 1,000 ml @ 100 mls/hr Q10H IV 02/17/24 16:00 02/18/24 04:43 100 MLS/HR Ceftriaxone Sodium 50 ml @ 100 mls/hr DAILY@09 IV 02/18/24 09:00 02/18/24 09:37 100 MLS/HR Pantoprazole Sodium 40 mg DAILY PO 02/18/24 10:00 02/18/24 09:37 40 MG Laboratory Results Laboratory Tests 02/18/24 06:16 Chemistry Test 02/18/24 06:16 Albumin 4.3 g/dL (3.2-4.8) Calcium Level 9.8 mg/dL (8.7-10.4) Total Protein 7.0 g/dL (5.7-8.2) LFT Test 02/18/24 06:16 Alanine Aminotransferase (ALT) 17 U/L (7-40) Alkaline Phosphatase 75 U/L (46-116) Aspartate Amino Transferase (AST) 16 U/L (13-40) Total Bilirubin 0.7 mg/dL (0.2-1.0) HgA1c, TSH Test 02/17/24 13:15 Hemoglobin A1c 5.3 % A1C (<5.7) Urinalysis Test 02/16/24 16:20 Urine Color Yellow (Yellow) Urine Clarity Clear (Clear) Urine pH 5.5 (5.0-9.0) Urine Specific [place] 1.037 (1.001-1.035) Urine Protein Trace (Negative) H Urine Ketones Negative (Negative) Urine Blood Negative /uL (Negative) Urine Nitrite Negative (Negative) Urine Bilirubin Negative (Negative) Urine Urobilinogen Normal mg/dL (Negative) Urine Leukocyte Esterase Negative /uL (Negative) Urine RBC 1 /hpf (0 - 3) Urine WBC 3 /hpf (0 - 3) Urine Squamous Epithelial Cells Few /hpf (<5) Urine Bacteria None seen /hpf (None Seen) Urine Mucus Few (None Seen) Urine Glucose Normal mg/dL (Normal) Labs and/or images reviewed: Labs reviewed by me, Image(s) reviewed by me Assessment/Plan Assessment/Plan Impression: -probable gastroenteritis -calculi and appendix -obesity -primary hypertension Plan: -GI consultation has been placed yesterday, currently pending -surgical consultation: Acute appendicitis ruled out -continue antibiotic therapy with Rocephin and Flagyl -pain management -stool for occult blood: Pending -discharge planning once cleared by Gastroenterology Total time spent with patient discussing and formulating plan of care: 35 minutes. This medical document was created using an electronic medical record system with [employer] dictation system. Although this document has been carefully reviewed, there may still be some phonetic and typographical errors. These areas are purely typographical due to imperfections of the software programs, and do not reflect any compromise in the patient's medical care. Plan discussed with: Patient, Spouse, Other (RN) My Orders Orders - MELODY ALLEN NP Procedure Category Date Status Time * Gi Dvh Subgrade Tester CONS 02/18/24 Transmitted 10:36 Date of Service: Feb 18, 2024 Billing Provider: MELODY ALLEN NP Common Visit Codes: [id number] INP/OBS CARE(HIGH) MELODY ALLEN NP Feb 18, 2024 11:50
[2024-02-18] MEDS: LISINOPRIL 5 MG TAB PO ONE (20:45)
[2024-02-19] VITALS (8 sets, daily range): BP systolic 136–157; BP diastolic 89–112; PULSE 57–73; RESP 18–19; TEMP 36.7; O2SAT 100
--- NOTE | 2024-02-19 00:04 | DVHINCON2 ---
Date of service: Feb 18, 2024 History of Present Illness 28 y/o M pt with PMH of HTN, obesity admitted with abd pain. He reports abd pain with N/V. No GIB/diarrhea/constipation. Denies NSAIDs intake. Never had EGD /colo. Past Medical History Reviewed Past Surgical History Reviewed Family History: Diabetes mellitus G8 MOTHER, Onset:40's - 50 Hypertension G8 MOTHER, Onset:25's - 30 Allergies: Coded Allergies: NO KNOWN ALLERGIES (Unverified , 02/16/24) Home Meds Active Scripts Metronidazole (Flagyl) 500 Mg Tab, 1 TAB PO TID for 5 Days, #15 TAB Prov:MELODY ALLEN PROJECT PRODUCT MANAGER 02/19/24 Reported Medications Gemfibrozil (Gemfibrozil) 600 Mg Tab, 600 MG PO, TAB 02/17/24 Lisinopril (Lisinopril) 10 Mg Tab, 1 TAB PO DAILY 02/17/24 Amlodipine Besylate (Amlodipine Besylate) 5 Mg Tab, 1 TAB PO DAILY 02/17/24 Current Medications Current Medications Medications (Trade) Dose Ordered Sig/Shun Route PRN Reason Start Time Stop Time Status Last Admin Ceftriaxone Sodium 50 ml @ 100 mls/hr DAILY@09 IV 02/18/24 09:00 02/18/24 09:37 Pantoprazole Sodium (Protonix Tablet) 40 mg DAILY PO 02/18/24 10:00 02/18/24 09:37 Review of Systems 14 point ROS neg except mentioned above Vital Signs Vital Signs Date Time Temp Pulse Resp B/P (MAP) Pulse Ox O2 Delivery O2 Flow Rate FiO2 02/18/24 21:00 98.1 62 18 157/100 (119) 100 98.1 02/18/24 20:00 Room Air* 0 21 Physical Exam GE: in no distress CVS S1S2+ Lungs clear Abdomen: soft, nondistended, nontender, BS+ Labs/Diagnostic Data Labs Test 02/18/24 20:16 02/18/24 09:00 02/18/24 06:16 02/17/24 18:42 Range/Units POC Glucose 70 70-106 mg/dl Stool Occult Blood Negative Negative Stool Occult Blood Sample #3 Negative White Blood Count 6.9 4.4-10.8 10^3/uL Red Blood Count 5.08 4.5-5.90 10^6/uL Hemoglobin 15.6 13.5-17.5 g/dL Hematocrit 44.7 41.0-53.0 % Mean Corpuscular Volume 88.1 80.0-100.0 fL Mean Corpuscular Hemoglobin 30.7 28.0-32.0 pg Mean Corpuscular Hemoglobin Concent 34.9 32.0-36.0 g/dL Red Cell Distribution Width 13.7 11.8-14.3 % Platelet Count 249 140-450 10^3/uL Mean Platelet Volume 7.4 6.9-10.8 fL Neutrophils (%) (Auto) 68.8 37.0-80.0 % Lymphocytes (%) (Auto) 19.6 10.0-50.0 % Monocytes (%) (Auto) 6.9 0.0-12.0 % Eosinophils (%) (Auto) 4.2 0.0-7.0 % Basophils (%) (Auto) 0.5 0.0-2.0 % Neutrophils # (Auto) 4.7 1.6-8.6 10 ^3/uL Lymphocytes # (Auto) 1.3 0.4-5.4 10 ^3/uL Monocytes # (Auto) 0.5 0-1.3 10 ^3/uL Eosinophils # (Auto) 0.3 0-0.8 10 ^3/uL Basophils # (Auto) 0 0-0.2 10 ^3/uL Nucleated Red Blood Cells 0.3 % Sodium Level 140 136-145 mmol/L Potassium Level 3.7 3.5-5.1 mmol/L Chloride Level 103 98-107 mmol/L Carbon Dioxide Level 30 20-31 mmol/L Anion Gap 7 5-15 Blood Urea Nitrogen 6 L 9-23 mg/dL Creatinine 0.88 0.700-1.30 mg/dL Glomerular Filtration Rate Calc 121 >90 mL/min BUN/Creatinine Ratio 6.8 L 10.0-20.0 Serum Glucose 86 74-106 mg/dL Calcium Level 9.8 8.7-10.4 mg/dL Total Bilirubin 0.7 0.2-1.0 mg/dL Aspartate Amino Transferase (AST) 16 13-40 U/L Alanine Aminotransferase (ALT) 17 7-40 U/L Alkaline Phosphatase 75 46-116 U/L Total Protein 7.0 5.7-8.2 g/dL Albumin 4.3 3.2-4.8 g/dL Erythrocyte Sedimentation Rate 4 0-20 mm/hr Reticulocyte Count (auto) 0.89 0.5-1.5 % Test 02/17/24 13:15 02/17/24 07:05 02/16/24 16:20 02/16/24 08:53 Range/Units Hemoglobin A1c 5.3 <5.7 % A1C C-Reactive Protein High Sensitivity 2.91 H <1.0 mg/dL Urine Color Yellow Yellow Urine Clarity Clear Clear Urine pH 5.5 5.0-9.0 Urine Specific [place] 1.037 H 1.001-1.035 Urine Protein Trace H Negative Urine Ketones Negative Negative Urine Blood Negative Negative /uL Urine Nitrite Negative Negative Urine Bilirubin Negative Negative Urine Urobilinogen Normal Negative mg/dL Urine Leukocyte Esterase Negative Negative /uL Urine RBC 1 0 - 3 /hpf Urine WBC 3 0 - 3 /hpf Urine Squamous Epithelial Cells Few <5 /hpf Urine Bacteria None seen None Seen /hpf Urine Mucus Few None Seen Urine Glucose Normal Normal mg/dL Troponin I High Sensitivity < 3 L </=54 ng/L Test 02/16/24 07:48 Range/Units Lipase 43 12-53 U/L Assessment Abdominal pain N/V Umbilical hernia -Adequate pain control and cont supportive care. Monitor clinical course, likely 2/2 acute GE -Reviewed imaging studies -Diet as tolerated Thank you for the consult Plan discussed with: Patient LEORA HAMLIN MD Feb 19, 2024 00:04
--- NOTE | 2024-02-19 10:54 | DVHDS2 ---
Discharge Summary Date of Admission Feb 16, 2024 at 11:03 Date of Discharge: Feb 19, 2024 Admitting Diagnosis Abdominal pain, rule out appendicitis Labs/Diagnostic Data: Laboratory Results Test 02/19/24 08:38 02/18/24 09:00 02/18/24 06:16 02/17/24 18:42 POC Glucose 70 mg/dl (70-106) Stool Occult Blood Negative (Negative) Stool Occult Blood Sample #3 (Negative) White Blood Count 6.9 10^3/uL (4.4-10.8) Red Blood Count 5.08 10^6/uL (4.5-5.90) Hemoglobin 15.6 g/dL (13.5-17.5) Hematocrit 44.7 % (41.0-53.0) Mean Corpuscular Volume 88.1 fL (80.0-100.0) Mean Corpuscular Hemoglobin 30.7 pg (28.0-32.0) Mean Corpuscular Hemoglobin Concent 34.9 g/dL (32.0-36.0) Red Cell Distribution Width 13.7 % (11.8-14.3) Platelet Count 249 10^3/uL (140-450) Mean Platelet Volume 7.4 fL (6.9-10.8) Neutrophils (%) (Auto) 68.8 % (37.0-80.0) Lymphocytes (%) (Auto) 19.6 % (10.0-50.0) Monocytes (%) (Auto) 6.9 % (0.0-12.0) Eosinophils (%) (Auto) 4.2 % (0.0-7.0) Basophils (%) (Auto) 0.5 % (0.0-2.0) Neutrophils # (Auto) 4.7 10 ^3/uL (1.6-8.6) Lymphocytes # (Auto) 1.3 10 ^3/uL (0.4-5.4) Monocytes # (Auto) 0.5 10 ^3/uL (0-1.3) Eosinophils # (Auto) 0.3 10 ^3/uL (0-0.8) Basophils # (Auto) 0 10 ^3/uL (0-0.2) Nucleated Red Blood Cells 0.3 % Sodium Level 140 mmol/L (136-145) Potassium Level 3.7 mmol/L (3.5-5.1) Chloride Level 103 mmol/L (98-107) Carbon Dioxide Level 30 mmol/L (20-31) Anion Gap 7 (5-15) Blood Urea Nitrogen 6 mg/dL (9-23) Creatinine 0.88 mg/dL (0.700-1.30) Glomerular Filtration Rate Calc 121 mL/min (>90) BUN/Creatinine Ratio 6.8 (10.0-20.0) Serum Glucose 86 mg/dL (74-106) Calcium Level 9.8 mg/dL (8.7-10.4) Total Bilirubin 0.7 mg/dL (0.2-1.0) Aspartate Amino Transferase (AST) 16 U/L (13-40) Alanine Aminotransferase (ALT) 17 U/L (7-40) Alkaline Phosphatase 75 U/L (46-116) Total Protein 7.0 g/dL (5.7-8.2) Albumin 4.3 g/dL (3.2-4.8) Erythrocyte Sedimentation Rate 4 mm/hr (0-20) Reticulocyte Count (auto) 0.89 % (0.5-1.5) Test 02/17/24 13:15 02/17/24 07:05 02/16/24 16:20 02/16/24 08:53 Hemoglobin A1c 5.3 % A1C (<5.7) C-Reactive Protein High Sensitivity 2.91 mg/dL (<1.0) Urine Color Yellow (Yellow) Urine Clarity Clear (Clear) Urine pH 5.5 (5.0-9.0) Urine Specific [place] 1.037 (1.001-1.035) Urine Protein Trace (Negative) Urine Ketones Negative (Negative) Urine Blood Negative /uL (Negative) Urine Nitrite Negative (Negative) Urine Bilirubin Negative (Negative) Urine Urobilinogen Normal mg/dL (Negative) Urine Leukocyte Esterase Negative /uL (Negative) Urine RBC 1 /hpf (0 - 3) Urine WBC 3 /hpf (0 - 3) Urine Squamous Epithelial Cells Few /hpf (<5) Urine Bacteria None seen /hpf (None Seen) Urine Mucus Few (None Seen) Urine Glucose Normal mg/dL (Normal) Troponin I High Sensitivity < 3 ng/L (</=54) Test 02/16/24 07:48 Lipase 43 U/L (12-53) Other Laboratory Tests 02/18/24 06:16 Brief Hx & Hospital Course: History of Present Illness 28-year-old patient with a past medical history of PA and hypertension morbidly obese came into the ED with complaints of abdominal pain patient states that he has had associated nausea vomiting constipation diarrhea that has been happening on and off for few days but today was the worst when patient woke up having diaphoresis and sweating stating that he was having a lot of severe pain as of now patient was recommended in the ED to be evaluated for acute abdominal pain and recommended for further evaluation and management. Course of hospitalization: Surgical consultation has been placed. After assessment, he doubts that the patient has acute appendicitis. Patient has no leukocytosis, afebrile, with his abdominal pain involving his right and left lower quadrants. GI consultation was obtained given the patient was reporting bloody stools. FOBT has been found to be negative. The patient was tolerating oral intake without any worsening of his pain. The patient was continued on antibiotics during his course of hospitalization including Rocephin and Flagyl. At this time, the patient's symptoms have improved dramatically. He will be discharged home and continued on Flagyl 500 mg p.o. 3 times a day for additional five days. He will follow up with the discharge Clinic in one week. All questions answered. Physical examination General: Alert and Oriented x3. No acute distress. Well-nourished. Eyes: EOMI. Anicteric. HENT: Moist mucous membranes. Lungs: Clear to auscultation bilaterally. No accessory muscle use. Cardiovascular: Regular rate and rhythm. No murmur. No JVD. Abdomen: Soft, non-tender and non-distended. No palpable masses. Extremities: No edema. Non-tender. Skin: No rashes or lesions. Warm. Neurologic: No focal neurological deficits. CN II-XII grossly intact, but not individually tested. Psychiatric: Cooperative. Appropriate mood and affect. Total time spent with patient discussing and formulating plan of care: 35 minutes. This medical document was created using an electronic medical record system with [employer] system. Although this document has been carefully reviewed, there may still be some phonetic and typographical errors. These areas are purely typographical due to imperfections of the software programs, and do not reflect any compromise in the patient's medical care. 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 3 times a day for five days 36 Discharge Statement: "Patient was advised to return to the ER or call 911 if any headaches, dizziness, shortness of breath, chest pain, abdominal pain, bleeding, fevers, or worsening of medical condition. Patient was counseled about treatment plan, medications, possible side effects, patientverbalized understanding. All questions were answered to the best of my ability. This discharge took greater then 30 minutes in planning, reviewing documentation, counseling the patient, and discussing with other team members." ASSESSMENT ASSESSMENT Assessment Abdominal pain secondary to gastroenteritis Date of Service: Feb 19, 2024 Billing Provider: MELODY ALLEN NP Common Visit Codes: 80314-YXC/[id number] DISCH DAY >30min MELODY ALLEN NP Feb 19, 2024 10:54
[2024-02-19] MEDS: amLODIPine BESYLATE 5 MG TAB PO ONE (12:35)
[2024-02-19] MEDS ORDERED: METR-344 PO (13:50)
== END 2024-02-19 14:40 | disposition home or self-care (01) | DRG 248 ==
LOC: ER 07:06 → EDBD 07:06 → MERGE 11:03 → OVERFLOW 11:03 → CENTRAL 02-17 17:58
PROVIDERS: ADMIT Hospitalist; ATTEND Nurse Practitioner Acute Care
DX: A04.9 Bacterial intestinal infection, unspecified (principal); K76.0 Fatty (change of) liver, not elsewhere classified; E66.01 Morbid (severe) obesity due to excess calories; K42.9 Umbilical hernia without obstruction or gangrene; I10 Essential (primary) hypertension; K38.1 Appendicular concretions; R73.9 Hyperglycemia, unspecified; I25.10 Atherosclerotic heart disease of native coronary artery without angina pectoris; I25.2 Old myocardial infarction; Z82.49 Family history of ischemic heart disease and other diseases of the circulatory system; Z83.3 Family history of diabetes mellitus; Z68.29 Body mass index [BMI] 29.0-29.9, adult
CPT/HCPCS: 36415; 71045; 74177; 80048; 80053; 81001; 82270; 82962; 83036; 83690; 84484; 85014; 85018; 85025; 85045; 85652; 86141; 93005; 99291; G0378; J2405; J3490